=== PATIENT | male | born 1940 | race Two or more races ===

== ENCOUNTER → 2016-06-26 | Outpatient (CLI) | payer OTHER | LOC: BHFA 13:15 | PROVIDERS: ATTEND Internal Medicine Cardiovascular Disease | DX: I11.9 Hypertensive heart disease without heart failure (principal); I27.2 Other secondary pulmonary hypertension ==

== ENCOUNTER 2016-08-16 10:30 | Inpatient (IN) | payer OTHER ==
[2016-08-16] MEDS ORDERED: ONDANSETRON 4 MG/2 ML VIAL IVP ONE (12:37)
[2016-08-16] MEDS ORDERED: KETOROLAC 30 MG/1 ML SDV IVP ONE (14:02)
[2016-08-16 14:12] LABS: GLOMERULAR FILTRATION RATE > 60
--- NOTE | 2016-08-16 15:09 | EDPHY ---
H & P Stated Complaint: continued problems with r SI joint/pain Time Seen by Provider: 08/16/16 12:20 HPI/ROS: CHIEF COMPLAINT: SI joint pain HISTORY OF PRESENT ILLNESS: Patient complains of several days history of right- sided SI joint pain. This is an exacerbation of chronic pain that he has had. He has had this for many years. No new illness or injury. Just sudden worsening of pain over the past 2 days. There is no midline tenderness. The pain does occasionally radiate down the right leg. No saddle anesthesia. No incontinence of bowel or bladder. He has a baseline peripheral neuropathy it is unchanged. No weakness of the lower extremities. 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 He has a history of SI injection by fluoroscopy that was very successful for him. He also has electrodes in place for pain control that are not helping him. No other associated complaints or modifying factors. REVIEW OF SYSTEMS: Ten systems reviewed and are negative unless otherwise noted in the HPI PAST MEDICAL HISTORY: Reviewed. Contributory for chronic pain with pain stimulator in place and previous history of narcotic abuse and alcohol abuse SOCIAL HISTORY: Nonsmoker FAMILY HISTORY: Noncontributory EXAMINATION General Appearance: Alert, no distress Head: normocephalic, atraumatic Eyes: Pupils equal and round, no conjunctival pallor or injection ENT, Mouth: Mucous membranes moist Neck: Normal inspection, supple, non-tender Respiratory: Mild rhonchi. No crackles or diminishment. No distress Cardiovascular: Regular rate and rhythm. No murmur Gastrointestinal: Obese abdomen. Large, easily reducible hernia. No tenderness Back: Mild tenderness in the low back lateral of midline on the right. No bony tenderness. There are well-healed surgical incisions the back. Neurological: A&O, nonfocal. Sensory is intact for baseline. Strength is symmetric in both lower limbs. Patellar reflexes are symmetric. Skin: Warm and dry, no rash. No petechiae or purpura. Extremities: Nontender, no pedal edema Psychiatric: Mood and affect normal DIFFERENTIAL DIAGNOSES: Including but not limited to sacroiliitis, chronic pain, exacerbation of chronic pain, lumbar radiculopathy, acute cord compression, cauda equina MDM: 12:25 p.m. Exacerbation of right sacroiliitis. No neuro deficits. Strength is symmetric. Patellar reflexes symmetric. He has no midline tenderness of the back that is new for him. Does have existing neuropathy. I have ordered a dose of pain medication and will provide Toradol if his creatinine is normal. No evidence of acute cord compression or cauda equina at this time. 1:30 p.m. Creatinine pending. Pain medication administered with minimal improvement. Continue to monitor and re-dose 2:30 p.m. creatinine is within normal limits, thus I will dose with Toradol and 1 more dose of morphine. 3:10 p.m. Persistent pain that is refractory to 2 doses of morphine Toradol. The patient is unable to ambulate out of his bed due to the pain. Complex scenario is here he has pain stimulator, previous narcotic dependency. I am not comfortable discharging patient home as he has been unable to ambulate due to pain. I will proceed with admission to hospital for further care in to discuss the possibility of steroid injection under fluoroscopy when available. 3:30 p.m. I discussed case with Dr. Laws he will admit the patient to observation status for pain control. He is admitted in stable condition neurovascular intact without any evidence of acute cord compression or cauda equina SUPERVISION: Case discussed with Dr. De Paz Source: Patient Exam Limitations: No limitations - Personal History Current Tetanus/Diphtheria Vaccine: Yes Tetanus Vaccine Date: WITHIN 10 Y - Medical/Surgical History Hx Asthma: No Hx Chronic Respiratory Disease: Yes Hx Diabetes: No Hx Cardiac Disease: No Hx Renal Disease: No Hx Cirrhosis: No Hx Alcoholism: No Hx HIV/AIDS: No Hx Splenectomy or Spleen Trauma: No Other PMH: Depression, COPD, chronic pain, HTN, ORTHO SURG BOTH KNEES. hernia surg in 1999, spinal and neck fusion, spinal stimulator, NO MRI - Social History Smoking Status: Former smoker Constitutional: Initial Vital Signs Temperature (C) 97.7 F 08/16/16 10:39 Heart Rate 61 08/16/16 10:39 Respiratory Rate 17 08/16/16 10:39 Blood Pressure 167/93 H 08/16/16 10:39 O2 Sat (%) 93 08/16/16 10:39 O2 Delivery Mode Nasal Cannula O2 (L/minute) 1 Allergies/Adverse Reactions: levofloxacin [From Levaquin] Allergy (Severe, Verified 08/16/16 10:37) amnesia,shaking,swelling,poor sleep Sulfa (Sulfonamide Antibiotics) Allergy (Severe, Verified 08/16/16 10:37) Other-Enter Comments amitriptyline Allergy (Verified 08/16/16 10:37) duloxetine [From Cymbalta] Allergy (Verified 08/16/16 10:37) Home Medications: Medication Instructions Recorded Fluticasone/Salmeter 250/50Mcg 1 puffs IH BID 12/25/13 [Advair 250/50 (*)] Losartan Potassium [Cozaar] 100 mg PO DAILY@12/25/13 Tamsulosin HCl [Flomax 0.4 MG (*)] 0.8 mg PO DAILY@12/25/13 Finasteride [Proscar 5 MG (*)] 5 mg PO DAILY 11/04/14 Levalbuterol Inhaler [Xopenex Hfa 1 puffs IH TID PRN 12/12/14 Inhaler (*)] Baclofen [Baclofen 10 mg (*)] 10 mg PO TID 05/04/15 Disulfiram [Antabuse 250 MG (*)] 250 mg PO MOWEFR@05/04/15 Escitalopram Oxalate [Lexapro] 20 mg PO DAILY 05/04/15 Folic Acid 0.8 mg PO DAILY 05/04/15 [place]-3 Fatty Acids [Fish Oil 1000 1,000 mg PO HS 05/04/15 mg (*)] amLODIPine BESYLATE [Norvasc 5 mg 5 mg PO DAILY #30 tab 05/05/15 (*)] Metoprolol Succinate Xr [Toprol Xl 50 mg PO DAILY 10/21/15 50 mg (*)] Acetaminophen [Tylenol ES 500 mg 500 mg PO BID PRN 02/12/16 (*)] Diphenoxylate HCl/Atrop Sulf 1 - 2 tab PO Q6HRS PRN 02/12/16 [Lomotil Tab (*)] Diazepam [Valium 5 MG (*)] 5 mg PO DAILY PRN 08/16/16 Gabapentin [Neurontin] 1,200 mg PO TID 08/16/16 Medical Decision Making - Data Points Laboratory Results: Laboratory Results 08/16/16 13:05 08/16/16 13:05 Creatinine 1.0 mg/dL mg/dL (0.7-1.3) Estimated GFR > 60 Medications Given: Discontinued Medications Ketorolac Tromethamine (Toradol) 15 mg IVP EDNOW ONE Stop: 08/16/16 14:03 Last Admin: 08/16/16 14:20 Dose: 15 mg Morphine Sulfate (Morphine) 6 mg IVP EDNOW ONE Stop: 08/16/16 12:38 Last Admin: 08/16/16 12:56 Dose: 6 mg Morphine Sulfate (Morphine) 4 mg IVP EDNOW ONE Stop: 08/16/16 14:03 Last Admin: 08/16/16 14:20 Dose: 4 mg Ondansetron HCl (Zofran) 4 mg IVP EDNOW ONE Stop: 08/16/16 12:38 Last Admin: 08/16/16 12:56 Dose: 4 mg Departure - Departure Disposition: [facility] Inpatient Acute Clinical Impression: Intractable pain, Sacroiliitis Condition: Good Referrals: DENILSON BIANCHI [Primary Care Provider] - As per Instructions
--- NOTE | 2016-08-16 16:29 | HOSPPROG ---
Hospitalist Progress Note Assessment/Plan: HISTORY AND PHYSICAL CC:Sacroiliac pain HISTORY: this patient has a long history of back pain issues including most recently chronic bilateral sacroiliac pain. He has had multiple injections to the sacroiliac joints and states that the only 1 that was ever effective was 1 done under imaging guidance. He also has at this time a stimulator in place to treat his SI pain. He says that up until a week ago he is doing quite well without any pain and not using pain medications. A week ago he did some imaging work on his lawn and felt a mild bit of SI joint pain on the right side for a day or 2 without radiculopathy. Then last night as he got a bed he started to feel some more pain but as he woke up this morning the pain was severe in the right SI joint area and he is unable to really stand up again around. He comes into the ER for further evaluation and is wondering if another injection would be helpful. His stimulator has been in place for a year and a half. He has not had problems with that functioning so far. It was placed by Dr. Mcmahon. He has not been having any fevers recently and again has no symptoms to suggest nerve impingement or cauda equina syndrome. He does not use narcotic pain medicines. He had previously been prescribed long and short-acting narcotic pain medicines for ongoing back pain, but he has stopped using these when he was admitted here having used his short-acting medicine excessively and with significant mentation changes related to that. He does also have a history of lumbar spine surgery for spinal stenosis and it seems he is stable from that. ROS: A comprehensive 10 system review revealed no other significant findings PAST MEDICAL HISTORY: Back issues as above History of alcohol and prescribed narcotic abuse, sober COPD, sleep apnea, pulmonary hypertension, chronic respiratory failure with hypoxemia HTN Chronic anxiety disorder Bilateral knee replacements neuropathy in both legs FAMILY MEDICAL HISTORY: he is not aware of any specific concerning or relevant medical issues and relatives SOCIAL HISTORY: he is sober after previous issues with alcohol and prescribe narcotics He formerly was an extremely fit person, very active in competitive martial arts , and weight lifting. In the last 5 years due to back and knee problems he has been unable to be physically active and has gained 50 lb though has been working with some dieting measures and has lost approximately 24 lb in the last few months. It is very uncomfortable for him psychologically to have been unable to continue his previous physical activity levels MEDICATIONS: The patients list has been reconciled by our clinical pharmacist in the EMR. I have reviewed the list and ordered appropriate medicines. PHYSICAL EXAMINATION: Vital Signs: stable without fever Examination: General: alert, oriented, good mentation, relaxed He is lying supine on a ER gurney, and has inability to move significantly from that position due to severe pain with movement ; this pain is in the right SI joint area. 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 -Previous history of abuse of prescribed narcotic analgesics, making avoidance of these medicines the best strategy if at all possible during this admission -Chronic stable COPD, sleep apnea, and hypoxemic respiratory failure PLANS: -admission to observation status here overnight -I will review case with Dr. Peña's team regarding potential evaluation of his stimulator -Consider sacroiliac injection with CT guidance or other imaging guidance I have reviewed the patient's case in detail with JAXSON Boggs, of the ER I have reviewed the patient's past medical records as part of this assessment, including Objective: Vital Signs Temp Pulse Resp BP Pulse Ox 36.2 C 65 16 168/88 H 97 08/16/16 16:16 08/16/16 16:16 08/16/16 16:16 08/16/16 16:16 08/16/16 16:16 08/15/16 08/16/16 08/17/16 06:59 06:59 06:59 Intake Total 1000 Balance 1000 ICD10 Worksheet Patient Problems: Problems Problem Status Onset Intractable pain Acute Sacroiliitis Acute Anxiety Acute Chronic Disease Mgmt/Transitional Care Acute Chronic obstructive pulmonary disease with acute exacerbation Acute Congenital cervical spine stenosis Acute Congestive heart failure Acute Delirium Acute Elevated brain natriuretic peptide (BNP) level Acute Elevated d-dimer Acute Hx of decompressive lumbar laminectomy Acute Hypertensive urgency Acute Hyponatremia Acute Hypoxia Acute Myelopathy of lumbar region Acute Myelopathy of thoracic region Acute Pneumonia Acute Primary osteoarthritis of both knees Acute Renal failure Acute Sciatica Acute Sepsis Acute
[2016-08-16] MEDS ORDERED: DIPHENOXYLATE/ATROPINE LOMOTIL 1 TAB PO PRN (16:33)
[2016-08-16] MEDS ORDERED: LEVALBUTEROL INHALER 200 PUFFS/15 GM MDI IH PRN (16:33)
[2016-08-16] MEDS: GABAPENTIN 400 MG CAP PO SCH ×2 (17:05→21:18)
[2016-08-16] MEDS: DIAZEPAM 5 MG TAB PO PRN (17:06)
[2016-08-16] MEDS: BACLOFEN 10 MG TAB PO SCH ×2 (17:06→21:18)
[2016-08-16] MEDS: FLUTICASONE/SALMETER 250/50MCG DISKUS IH SCH (20:33)
[2016-08-16] MEDS: OMEGA-3 FATTY ACIDS 1,000 MG CAP PO SCH (21:18)
[2016-08-16] MEDS ORDERED: NON-FORMULARY NEW DRUG (Gabapentin [Neurontin] 1,200 MG) PO SCH (22:00)
[2016-08-17] MEDS ORDERED: KETOROLAC 15 MG/1 ML SDV IVP ONE (01:13)
[2016-08-17] MEDS ORDERED: ACETAMINOPHEN 650 MG/20.3 ML UDCUP PO PRN (01:15)
[2016-08-17] MEDS: LIDOCAINE 5% 1 EA PATCH TD SCH (03:14)
[2016-08-17] MEDS: ACETAMINOPHEN 500 MG TAB PO PRN (03:14)
[2016-08-17] MEDS ORDERED: NON-FORMULARY NEW DRUG (Losartan Potassium [Cozaar] 100 MG) PO SCH (08:00)
[2016-08-17] MEDS: amLODIPine BESYLATE 5 MG TAB PO SCH (08:17)
[2016-08-17] MEDS: GABAPENTIN 400 MG CAP PO SCH ×3 (08:17→21:54)
[2016-08-17] MEDS: METOPROLOL SUCCINATE XR 50 MG TAB PO SCH (08:18)
[2016-08-17] MEDS: FINASTERIDE 5 MG TAB PO SCH (08:18)
[2016-08-17] MEDS: LOSARTAN POTASSIUM 50 MG TAB PO SCH (08:18)
[2016-08-17] MEDS: BACLOFEN 10 MG TAB PO SCH ×3 (08:19→21:54)
[2016-08-17] MEDS: DISULFIRAM 250 MG TAB PO SCH (08:19)
[2016-08-17] MEDS: ESCITALOPRAM OXALATE 10 MG TAB PO SCH (08:19)
[2016-08-17] MEDS: FLUTICASONE/SALMETER 250/50MCG DISKUS IH SCH ×2 (08:38→20:45)
[2016-08-17] MEDS ORDERED: FOLIC ACID 0.8 MG PO SCH (09:00)
[2016-08-17] MEDS ORDERED: NON-FORMULARY NEW DRUG (Escitalopram Oxalate [Lexapro] 20 MG) PO SCH (09:00)
[2016-08-17] MEDS ORDERED: NON-FORMULARY NEW DRUG (Folic Acid [Folic Acid] 0.8 MG) PO SCH (09:00)
[2016-08-17] MEDS ORDERED: oxyCODONE IR 5 MG TAB PO PRN (11:08)
[2016-08-17] MEDS ORDERED: LIDOCAINE 1% 300 MG/30 ML SDV ONE (11:31)
[2016-08-17] MEDS ORDERED: IOPAMIDOL (ISOVUE-M 200) 20 ML VIAL ONE (11:33)
[2016-08-17 11:35] LABS: INR 0.96 (0.83-1.16); PROTIME(PATIENT) 12.7 SEC (12.0-15.0)
[2016-08-17] MEDS: TAMSULOSIN HCL 0.4 MG CAP PO SCH (11:46)
[2016-08-17] MEDS: FOLIC ACID 1 MG TAB PO SCH (15:06)
[2016-08-17] MEDS: PATCH REMOVAL 1 EA PATCH TD SCH (16:10)
--- NOTE | 2016-08-17 16:39 | GCON ---
[f rep st] CONSULTATION DATE OF CONSULTATION: 08/17/2016 CHIEF COMPLAINT: Right lower back pain, right SI pain, right lateral thigh pain. HISTORY OF PRESENT ILLNESS: The patient is a 76-year-old male with a long history of back pain. He has a history of thoracic fusion and lumbar laminectomies by Dr. Mcmahon, as well as a [employer] spinal cord stimulator placement in 2014. He felt he was doing well following his stimulator placement, up until about 9 days ago when he had an increase in pain. He noticed the pain onset after he was done edging his lawn. Describes his pain as right lower back pain, right SI pain. Extends into his buttock and down his right lateral thigh. Denies any weakness in his lower extremities. He denies any saddle anesthesia. Presented to the emergency room yesterday for pain management. REVIEW OF SYSTEMS: See HPI. 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 PAST SURGICAL HISTORY: Spinal cord stimulator placement December [address] Mcmahon; T9, T10, T11, T12 laminectomy/fusion [place] [address] Mcmahon ; L3, L4 laminectomy by Dr. Mcmahon; umbilical hernia repair; bilateral knee surgery. FAMILY HISTORY: Mother had lung disease. She of emphysema. Father at age 97. No history of cardiac disease. 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 He has had previous issues with alcohol and prescription narcotics. MEDICATIONS: Patient is taking Neurontin 1200 mg t.i.d., baclofen 30 mg t.i.d. , patient has a lidocaine patch on his right buttock. ALLERGIES: Sulfa, Levaquin, Cymbalta, amitriptyline, OxyContin, oxycodone. PHYSICAL EXAMINATION: MOTOR: 5/5 strength in bilateral lower extremities, including the iliopsoas 5/5 bilateral. Quadriceps 5/5 bilateral. Hamstrings 5/ 5 bilateral. Plantar flexors 5/5 bilateral. Extensor hallucis longus bilateral 5/5. SENSORY: Sensation in bilateral lower extremities is intact to light touch throughout all dermatomal distributions. Patient has negative JCARLOS test bilaterally, negative straight leg raise bilaterally. REFLEXES: Toes are downgoing bilaterally. Johnson sign is negative. Right knee reflex 1+ , left knee reflex 1+. Unable to obtain ankle jerks, absent. Babinski's is negative, and there is no evidence of clonus. CRANIAL NERVES: Cranial nerve II , optic: Pleura. Cranial nerve III: Grossly intact oculomotor. Cranial nerve IV, trochlear: No eye deviation. Cranial nerve V: Sensation intact in V1, V2, and V3 distributions. Facial nerve: There is no facial asymmetry. Cranial nerve VIII, acoustic: Hearing is intact to finger rub bilaterally. Cranial nerve IX, glossopharyngeal: Uvula is midline. Cranial nerve XII, hypoglossal: Tongue protrusion is midline. ORIENTATION: Patient is alert and oriented to person, time, and place. Patient has a normal gait. DIAGNOSTICS: The patient has not had any diagnostic imaging of his spine since admission. ASSESSMENT AND PLAN: The patient is a 76-year-old male who was admitted yesterday for pain management of his lower back. He has a long history of thoracic and lumbar spine surgeries with Dr. Mcmahon, as well as a spinal cord stimulator placement in 2014. Patient describes his pain as being located just above his generator in his right buttock and his sacroiliac region, as well as pain that extends down his right lateral thigh. The patient has received injections with Dr. Vega in the past, which he feels were beneficial. Due to the presence of the spinal cord stimulator, the patient is unable to get an MRI, therefore, we will order a CT myelogram of the lumbar spine as well as some x-rays of the lumbar spine including flexion/extension. Based upon the results of those images, it is likely we will recommend an injection during this hospital stay. NEUROSURGERY ATTENDING NOTE I met with the patient the afternoon of the consultation and agree with the plan as outlined above. We will obtain further imaging and then recommend non- operative interventions depending on his imaging results (injections, medications, etc). He was in agreement with the plan and all questions were answered. /[id number]/MODL MTDD
--- NOTE | 2016-08-17 17:10 | HOSPPROG ---
Hospitalist Progress Note Assessment/Plan: * Acute on chronic back pain (previous laminectomies and spine stimulator) -CT myelogram pending -no MRI due to spine stimulator -pain control - IV morphine * COPD - advair * HTN -norvasc, losartan, metoprolol * Etoh abuse -Antabuse * Obesity BMI 34 with KEISHA * Neuropathy - Neurontin Subjective: Pain is severe. Pain control is inadequate Objective: Vital Signs Temp Pulse Resp BP Pulse Ox 36.3 C 62 12 162/94 H 93 08/17/16 15:36 08/17/16 15:36 08/17/16 15:36 08/17/16 15:36 08/17/16 15:36 Laboratory Results 08/17/16 11:15 08/16/16 08/17/16 08/18/16 05:59 05:59 05:59 Intake Total 200 Balance 200 PT 12.7 SEC (12.0-15.0) 08/17/16 11:15 INR 0.96 (0.83-1.16) 08/17/16 11:15 Lumbar xray - lower canal stenosis - Physical Exam Constitutional: no apparent distress, appears nourished, not in pain Cardiovascular: regular rate and rhythym, no murmur, rub, or gallop Respiratory: no respiratory distress, no rales or rhonchi, clear to auscultation Gastrointestinal: normoactive bowel sounds, soft, non-tender abdomen, no palpable masses Skin: no rashes or abrasions, no fluctuance, no induration Neurologic: AAOx3, sensation intact bilaterally Psychiatric: interacting appropriately, not anxious, not encephalopathic, thought process linear ICD10 Worksheet Patient Problems: Problems Problem Status Onset Intractable pain Acute Sacroiliitis Acute Anxiety Acute Chronic Disease [facility]/Transitional Care Acute Chronic obstructive pulmonary disease with acute exacerbation Acute Congenital cervical spine stenosis Acute Congestive heart failure Acute Delirium Acute Elevated brain natriuretic peptide (BNP) level Acute Elevated d-dimer Acute Hx of decompressive lumbar laminectomy Acute Hypertensive urgency Acute Hyponatremia Acute Hypoxia Acute Myelopathy of lumbar region Acute Myelopathy of thoracic region Acute Pneumonia Acute Primary osteoarthritis of both knees Acute Renal failure Acute Sciatica Acute Sepsis Acute
[2016-08-17] MEDS: OMEGA-3 FATTY ACIDS 1,000 MG CAP PO SCH (20:04)
[2016-08-17] MEDS: DIAZEPAM 5 MG TAB PO PRN (20:04)
[2016-08-18] MEDS: ACETAMINOPHEN 500 MG TAB PO PRN (03:21)
[2016-08-18 05:04] LABS: % IMMATURE GRANULYOCYTES 0.8 % (0.0-1.1); ABSOLUTE IMMATURE GRANULOCYTES 0.04 10^3/uL (0.00-0.10); ADD DIFF? NO; ADD MORPH? NO; ADD SCAN? NO; ATYPICAL LYMPHOCYTE FLAG 10 (0-99); FRAGMENT RBC FLAG 0 (0-99); HEMATOCRIT 43.2 % (40.0-51.0); HEMOGLOBIN 14.8 g/dL (13.7-17.5); LEFT SHIFT FLG 0 (0-99); LIPEMIA HEMOLYSIS FLAG 90 (0-99); MEAN CELL HEMOGLOBIN 31.4 pg (27.9-34.1); MEAN CELL HEMOGLOBIN CONCENTR. 34.3 g/dL (32.4-36.7); MEAN CELL VOLUME 91.5 fL (81.5-99.8); MEAN PLATELET VOLUME 10.9 fL (8.7-11.7); PLATELET CLUMPS FLAG 10 (0-99); PLATELET COUNT 162 10^3/uL (150-400); RED BLOOD CELL COUNT 4.72 10^6/uL (4.40-6.38); RED CELL DISTRIBUTION WIDTH 13.7 % (11.5-15.2)
[2016-08-18 05:31] LABS: ANION GAP 8 mEq/L (8-16); CALCIUM 9.8 mg/dL (8.5-10.4); CARBON DIOXIDE 28 mEq/l (22-31); CHLORIDE 102 mEq/L (97-110); GLOMERULAR FILTRATION RATE > 60; GLUCOSE 92 mg/dL (70-100); POTASSIUM 4.7 mEq/L (3.5-5.2); SODIUM 138 mEq/L (134-144)
[2016-08-18] MEDS: FLUTICASONE/SALMETER 250/50MCG DISKUS IH SCH ×2 (08:55→20:56)
[2016-08-18] MEDS: GABAPENTIN 400 MG CAP PO SCH ×3 (09:12→21:46)
[2016-08-18] MEDS: amLODIPine BESYLATE 5 MG TAB PO SCH (09:12)
[2016-08-18] MEDS: FOLIC ACID 1 MG TAB PO SCH (09:12)
[2016-08-18] MEDS: BACLOFEN 10 MG TAB PO SCH ×3 (09:12→21:47)
[2016-08-18] MEDS: FINASTERIDE 5 MG TAB PO SCH (09:12)
[2016-08-18] MEDS: LIDOCAINE 5% 1 EA PATCH TD SCH (09:13)
[2016-08-18] MEDS: LOSARTAN POTASSIUM 50 MG TAB PO SCH (09:13)
[2016-08-18] MEDS: ESCITALOPRAM OXALATE 10 MG TAB PO SCH (09:13)
[2016-08-18] MEDS: METOPROLOL SUCCINATE XR 50 MG TAB PO SCH (09:21)
[2016-08-18] MEDS: TAMSULOSIN HCL 0.4 MG CAP PO SCH (11:57)
[2016-08-18] MEDS: METHOCARBAMOL 750 MG TAB PO PRN ×2 (11:57→19:49)
[2016-08-18] MEDS: methylPREDNISolone 4 MG TAB PO SCH ×4 (11:57→21:46)
[2016-08-18] MEDS ORDERED: traMADol 50 MG TAB PO PRN (15:44)
[2016-08-18] MEDS ORDERED: HYDROCODONE/APAP 5/325 TAB PO PRN (15:44)
--- NOTE | 2016-08-18 15:46 | HOSPPROG ---
Hospitalist Progress Note Assessment/Plan: * Acute on chronic right SI joint pain -Medrol dose pack started -if no improvement consider IR consult for SI steroid joint injection * Severe lumbar spinal stenosis (previous laminectomies and spine stimulator) -no MRI due to spine stimulator * Previous oxycodone abuse -refuses oxycodone - very motivated to not repeat previous issue -pain severe - IV Morphine here -wants to try norco, also offer tramadol/NSAIDS * COPD - advair * HTN -norvasc, losartan, metoprolol * Etoh abuse -Antabuse * Obesity BMI 34 with KEISHA * Neuropathy - Neurontin Subjective: Pain is severe, doesn't want to go home until he is sure he will not have another pain crisis in the middle of the night Objective: Vital Signs Temp Pulse Resp BP Pulse Ox 36.7 C 59 L 18 115/68 90 L 08/18/16 12:00 08/18/16 12:00 08/18/16 12:00 08/18/16 12:00 08/18/16 12:00 Laboratory Results 08/18/16 04:27 08/18/16 04:27 08/17/16 08/18/16 08/19/16 05:59 05:59 05:59 Intake Total 900 Balance 900 PT 12.7 SEC (12.0-15.0) 08/17/16 11:15 INR 0.96 (0.83-1.16) 08/17/16 11:15 d/w Tone Brock with neurosurgery - their plain is medrol dose pack - if pain continues consider SI joint injection CT lumbar spine - severe spinal stenosis - Physical Exam Constitutional: no apparent distress, appears nourished, not in pain Cardiovascular: regular rate and rhythym, no murmur, rub, or gallop Respiratory: no respiratory distress, no rales or rhonchi, clear to auscultation Gastrointestinal: normoactive bowel sounds, soft, non-tender abdomen, no palpable masses Skin: no rashes or abrasions, no fluctuance, no induration Neurologic: AAOx3, sensation intact bilaterally Psychiatric: interacting appropriately, not anxious, not encephalopathic, thought process linear ICD10 Worksheet Patient Problems: Problems Problem Status Onset Intractable pain Acute Sacroiliitis Acute Anxiety Acute Chronic Disease Mgmt/Transitional Care Acute Chronic obstructive pulmonary disease with acute exacerbation Acute Congenital cervical spine stenosis Acute Congestive heart failure Acute Delirium Acute Elevated brain natriuretic peptide (BNP) level Acute Elevated d-dimer Acute Hx of decompressive lumbar laminectomy Acute Hypertensive urgency Acute Hyponatremia Acute Hypoxia Acute Myelopathy of lumbar region Acute Myelopathy of thoracic region Acute Pneumonia Acute Primary osteoarthritis of both knees Acute Renal failure Acute Sciatica Acute Sepsis Acute
[2016-08-18] MEDS: OMEGA-3 FATTY ACIDS 1,000 MG CAP PO SCH (19:49)
[2016-08-18] MEDS: DIAZEPAM 5 MG TAB PO PRN (21:46)
[2016-08-18] MEDS: IBUPROFEN 600 MG TAB PO PRN (21:46)
[2016-08-18] MEDS: PATCH REMOVAL 1 EA PATCH TD SCH (21:50)
[2016-08-19] MEDS: methylPREDNISolone 4 MG TAB PO SCH ×3 (07:54→18:41)
[2016-08-19] MEDS: ESCITALOPRAM OXALATE 10 MG TAB PO SCH (07:56)
[2016-08-19] MEDS: GABAPENTIN 400 MG CAP PO SCH ×3 (07:56→21:35)
--- NOTE | 2016-08-19 07:58 | NEUSURGPN ---
Assessment/Plan: Assessment: 76 yo M hx of thoracic fusion and lumbar laminectomies, SCS placement (2014), admitted to medicine 08/16/16 right low back pain, right SI pain Plan: -Continue Medrol dose pack -Will order right SI injection with IR today, has been successful for patient in the past -NPO x8 hours prior to procedure -PT/OT as tolerated -Will eval pain level post injection -Follow exam, contact neurosurgery with any changes Subjective: Patient awake and alert, states his pain is worse when moving/standing Objective: aaox3 BLE IP 5/5, TA 5/5, EHL 5/5 negative bilateral Britney +LT Neuro Check Frequency: per routine Urinary Catheter in Place: No Neurosurgery Physical Exam - Vitals, I&O, Labs I and O 08/18/16 08/19/16 08/20/16 05:59 05:59 05:59 Intake Total 900 350 Output Total 400 Balance 900 -50 Intake: Oral (ml) 900 350 Output: Urine (ml) 400 Toilet 400 Other: Output Comment Toilet PT is I, in room, per Pt voids are usual, clear and pale Number of Voids Toilet 3 2 Vital Signs Temp Pulse Resp BP Pulse Ox 36.6 C 74 16 149/84 H 94 08/19/16 00:00 08/19/16 00:00 08/19/16 00:00 08/19/16 00:00 08/19/16 00:00 Laboratory Results 08/18/16 04:27 08/18/16 04:27 ICD10 Worksheet Patient Problems: Problems Problem Status Onset Intractable pain Acute Sacroiliitis Acute Anxiety Acute Chronic Disease Mgmt/Transitional Care Acute Chronic obstructive pulmonary disease with acute exacerbation Acute Congenital cervical spine stenosis Acute Congestive heart failure Acute Delirium Acute Elevated brain natriuretic peptide (BNP) level Acute Elevated d-dimer Acute Hx of decompressive lumbar laminectomy Acute Hypertensive urgency Acute Hyponatremia Acute Hypoxia Acute Myelopathy of lumbar region Acute Myelopathy of thoracic region Acute Pneumonia Acute Primary osteoarthritis of both knees Acute Renal failure Acute Sciatica Acute Sepsis Acute
[2016-08-19] MEDS: DISULFIRAM 250 MG TAB PO SCH (07:59)
[2016-08-19] MEDS: METOPROLOL SUCCINATE XR 50 MG TAB PO SCH (07:59)
[2016-08-19] MEDS: BACLOFEN 10 MG TAB PO SCH ×3 (08:00→21:35)
[2016-08-19] MEDS: LOSARTAN POTASSIUM 50 MG TAB PO SCH (08:00)
[2016-08-19] MEDS: amLODIPine BESYLATE 5 MG TAB PO SCH (08:00)
[2016-08-19] MEDS: IBUPROFEN 600 MG TAB PO PRN ×3 (08:00→20:08)
[2016-08-19] MEDS: FINASTERIDE 5 MG TAB PO SCH (08:00)
[2016-08-19] MEDS: FOLIC ACID 1 MG TAB PO SCH (08:01)
[2016-08-19] MEDS: LIDOCAINE 5% 1 EA PATCH TD SCH (08:01)
[2016-08-19] MEDS: FLUTICASONE/SALMETER 250/50MCG DISKUS IH SCH ×2 (08:27→21:40)
--- NOTE | 2016-08-19 08:37 | SOAPPROG ---
Downtime Inpatient MD Late Entry SOAP Note: Due to computer downtime, I am recreating the following medical record entry as of this date and time based on the information specified below: Information on which this medical record entry is based: (MD: Please list items, such as nursing notes, labs, imaging, etcetera) I saw this patient yesterday 08/18, but no note was saved S: awake, alert, complains of left sided buttock pain that can radiate posteriorly not past the knee. Not associate with weakness O: VSS, Neuro: ULU, sens +LT, follows commands CT myelogram shows multilevel lumbar DJD with moderate to severe stenosis at L2/ 3 and L3/4. A: 76 yo male with previous thoracic fusion and thoracic spinal cord stimulator with known chronic Low back pain. Admitted with acute flare up o of right hip/ buttock/SI joint pain. Patient feels like this is his SI joint pain that has cropped up in the past. P: start Medrol [place], PT/OT as tolerated. If not improved on oral steroids, will trial a right SI joint injection with IR as this has provided relief in past when injected by Dr. Briceño.
[2016-08-19] MEDS ORDERED: DEPO METHYLPREDNISOLONE 40 MG/ML SDV ONE (11:04)
[2016-08-19] MEDS ORDERED: BUPIVACAINE 0.5% 10 ML SDV ONE (11:05)
[2016-08-19] MEDS: METHOCARBAMOL 750 MG TAB PO PRN ×2 (11:27→18:41)
[2016-08-19] MEDS: TAMSULOSIN HCL 0.4 MG CAP PO SCH (13:54)
--- NOTE | 2016-08-19 15:37 | HOSPPROG ---
Hospitalist Progress Note Assessment/Plan: * Acute on chronic right SI joint pain -Medrol dose pack -s/p SI steroid joint injection - monitor for improvement * Severe lumbar spinal stenosis (previous laminectomies and spine stimulator) -no MRI due to spine stimulator * Previous oxycodone abuse -narcotic with extreme caution * COPD - advair * HTN -norvasc, losartan, metoprolol * Etoh abuse -Antabuse * Obesity BMI 34 with KEISHA * Neuropathy - Neurontin Subjective: SI joint injection went well, doesn't know yet what degree of pain relief he has Objective: Vital Signs Temp Pulse Resp BP Pulse Ox 37.2 C 56 L 14 147/84 H 93 08/19/16 11:25 08/19/16 11:25 08/19/16 11:25 08/19/16 11:25 08/19/16 11:25 Laboratory Results 08/18/16 04:27 08/18/16 04:27 08/18/16 08/19/16 08/20/16 05:59 05:59 05:59 Intake Total 900 350 Output Total 400 Balance 900 -50 PT 12.7 SEC (12.0-15.0) 08/17/16 11:15 INR 0.96 (0.83-1.16) 08/17/16 11:15 - Physical Exam Constitutional: no apparent distress, appears nourished, not in pain Cardiovascular: regular rate and rhythym, no murmur, rub, or gallop Respiratory: no respiratory distress, no rales or rhonchi, clear to auscultation Gastrointestinal: normoactive bowel sounds, soft, non-tender abdomen, no palpable masses Skin: no rashes or abrasions, no fluctuance, no induration Neurologic: AAOx3, sensation intact bilaterally Psychiatric: interacting appropriately, not anxious, not encephalopathic, thought process linear ICD10 Worksheet Patient Problems: Problems Problem Status Onset Intractable pain Acute Sacroiliitis Acute Anxiety Acute Chronic Disease Mgmt/Transitional Care Acute Chronic obstructive pulmonary disease with acute exacerbation Acute Congenital cervical spine stenosis Acute Congestive heart failure Acute Delirium Acute Elevated brain natriuretic peptide (BNP) level Acute Elevated d-dimer Acute Hx of decompressive lumbar laminectomy Acute Hypertensive urgency Acute Hyponatremia Acute Hypoxia Acute Myelopathy of lumbar region Acute Myelopathy of thoracic region Acute Pneumonia Acute Primary osteoarthritis of both knees Acute Renal failure Acute Sciatica Acute Sepsis Acute
[2016-08-19] MEDS: ACETAMINOPHEN 500 MG TAB PO PRN (18:41)
[2016-08-19] MEDS: OMEGA-3 FATTY ACIDS 1,000 MG CAP PO SCH (20:08)
[2016-08-19] MEDS: PATCH REMOVAL 1 EA PATCH TD SCH (20:09)
[2016-08-19] MEDS ORDERED: methylPREDNISolone 4 MG TAB PO SCH (21:00)
[2016-08-20] MEDS: ACETAMINOPHEN 500 MG TAB PO PRN (04:58)
[2016-08-20] MEDS: METHOCARBAMOL 750 MG TAB PO PRN (04:58)
[2016-08-20 07:16] VITALS: BP 169/93; TEMP 98
[2016-08-20] MEDS ORDERED: methylPREDNISolone 4 MG TAB PO SCH (07:30)
[2016-08-20] MEDS: GABAPENTIN 400 MG CAP PO SCH (08:19)
[2016-08-20] MEDS: DISULFIRAM 250 MG TAB PO SCH (08:20)
[2016-08-20] MEDS: ESCITALOPRAM OXALATE 10 MG TAB PO SCH (08:20)
[2016-08-20] MEDS: amLODIPine BESYLATE 5 MG TAB PO SCH (08:21)
[2016-08-20] MEDS: FOLIC ACID 1 MG TAB PO SCH (08:21)
[2016-08-20] MEDS: BACLOFEN 10 MG TAB PO SCH (08:21)
[2016-08-20] MEDS: METOPROLOL SUCCINATE XR 50 MG TAB PO SCH (08:21)
[2016-08-20] MEDS: LOSARTAN POTASSIUM 50 MG TAB PO SCH (08:21)
[2016-08-20] MEDS: FINASTERIDE 5 MG TAB PO SCH (08:22)
[2016-08-20] MEDS: LIDOCAINE 5% 1 EA PATCH TD SCH (08:22)
--- NOTE | 2016-08-20 09:11 | NEUSURGPN ---
Assessment/Plan: Assessment: 76 yo M hx of thoracic fusion and lumbar laminectomies, SCS placement (2014), admitted to medicine 08/16/16 right low back pain, right SI pain Plan: -Continue Medrol dose pack -SI injection successful- able to ambulate better without pain, still has some pain but much improved -Dispo- Plan for home today with follow up with Dr. Ceja in 2-3 weeks -PT/OT as tolerated -Follow exam, contact neurosurgery with any changes Subjective: Patient up walking around room. States SI joint injection helped a lot but still has some pain. Ready to go home later today. Objective: aaox3 BLE IP 06/26, TA 06/26, EHL 06/26 gait- normal TTP over SI joint sulcus but minimally +LT - Physician Discussed Patient with : [facility] Physical Exam - Vitals, I&O, Labs I and O 08/19/16 08/20/16 08/21/16 05:59 05:59 05:59 Intake Total 350 450 Output Total 400 Balance -50 450 Intake: Oral (ml) 350 450 Output: Urine (ml) 400 Toilet 400 Other: Intake Quantity Yes Sufficient Number of Voids Toilet 2 1 Vital Signs Temp Pulse Resp BP Pulse Ox 36.7 C 56 L 18 169/93 H 90 L 08/20/16 07:10 08/20/16 08:21 08/20/16 07:10 08/20/16 08:21 08/20/16 07:10 Laboratory Results 08/18/16 04:27 08/18/16 04:27 ICD10 Worksheet Patient Problems: Problems Problem Status Onset Intractable pain Acute Sacroiliitis Acute Anxiety Acute Chronic Disease Mgmt/Transitional Care Acute Chronic obstructive pulmonary disease with acute exacerbation Acute Congenital cervical spine stenosis Acute Congestive heart failure Acute Delirium Acute Elevated brain natriuretic peptide (BNP) level Acute Elevated d-dimer Acute Hx of decompressive lumbar laminectomy Acute Hypertensive urgency Acute Hyponatremia Acute Hypoxia Acute Myelopathy of lumbar region Acute Myelopathy of thoracic region Acute Pneumonia Acute Primary osteoarthritis of both knees Acute Renal failure Acute Sciatica Acute Sepsis Acute
[2016-08-20] MEDS: FLUTICASONE/SALMETER 250/50MCG DISKUS IH SCH (09:17)
[2016-08-20 09:19] VITALS: PULSE 61; RESP 12; O2SAT 94
--- NOTE | 2016-08-20 18:24 | GDS ---
[f rep st] DISCHARGE SUMMARY DISCHARGE DIAGNOSES: 1. Acute on chronic right sacroiliac joint pain. 2. Severe lumbar spinal stenosis. 3. Spinal stimulator. 4. Previous oxycodone abuse. 5. Chronic obstructive pulmonary disease. 6. Hypertension. 7. Alcohol abuse. 8. Obesity, BMI 34. 9. Obstructive sleep apnea. 10. Neuropathy. HISTORY: The patient is a 76-year-old male with a history of severe SI joint pain. He has gotten a spinal stimulator in the past for this indication. He has also previously had successful steroid i njections. He was admitted to the hospital and Neurosurgery consulted. They did a CT myelogram as he is unable to do an MRI due to the spinal stimulator. This showed severe lumbar spinal stenosis, and he has had previous laminectomies. It was decided to proceed with an SI joint steroid injection in Interventional Radiology. Patient had a great result with this, and the next day was nearly maeve n-free. Neurosurgery wishes him to discharge on a Medrol Dosepak. He did use narcotics while he wa s an inpatient for pain control, but given his previous history of oxycodone abuse, does not desire any narcotics upon hospital discharge. DISCHARGE MEDICATIONS: Please see computerized record for full detailed list. New medications: Medrol Dosepak as directed. ADDITIONAL DISCHARGE INSTRUCTIONS: 1. Follow up with Dr. Mcmahon in 2-3 weeks. 2. Follow up with primary care. Greater than 30 minutes' time was spent arranging this discharge. Patient was seen and examined by me on the day of discharge. /[id number]/MODL
[2016-08-21] MEDS ORDERED: methylPREDNISolone 4 MG TAB PO SCH (07:30)
[2016-08-22] MEDS ORDERED: methylPREDNISolone 4 MG TAB PO SCH (07:30)
[2016-08-23] MEDS ORDERED: methylPREDNISolone 4 MG TAB PO SCH (07:30)
== END 2016-08-20 11:11 | disposition home or self-care (01) | DRG 552 ==
LOC: F3N 16:14 → OBSVTOIN 08-17 11:10
PROVIDERS: ADMIT Internal Medicine; ATTEND Internal Medicine
PROC: B02B1ZZ Computerized Tomography (CT Scan) of Spinal Cord using Low Osmolar Contrast (ICD-10-PCS; principal; 2016-08-17)
PROC: 3E0U3BZ Introduction of Anesthetic Agent into Joints, Percutaneous Approach (ICD-10-PCS; 2016-08-19)
DX: M53.3 Sacrococcygeal disorders, not elsewhere classified (principal); M48.06 Spinal stenosis, lumbar region; F11.10 Opioid abuse, uncomplicated; J44.9 Chronic obstructive pulmonary disease, unspecified; I10 Essential (primary) hypertension; F10.10 Alcohol abuse, uncomplicated; E66.9 Obesity, unspecified; Z68.34 Body mass index [BMI] 34.0-34.9, adult; G47.33 Obstructive sleep apnea (adult) (pediatric); G62.9 Polyneuropathy, unspecified; Z96.89 Presence of other specified functional implants
CPT/HCPCS: 96374; 97165-GO; G0378; G8987-GO-CI; G8988-GO-CI; G8989-GO-CI; J1030; J1885; J2405; Q9966

== ENCOUNTER → 2017-01-20 | Outpatient (CLI) | payer OTHER | LOC: BHFA 14:00 | PROVIDERS: ATTEND Internal Medicine Cardiovascular Disease | DX: I10 Essential (primary) hypertension (principal) ==

== ENCOUNTER 2018-05-02 11:37 | Day surgery (SDC) | payer OTHER ==
[2018-05-02] MEDS ORDERED: LR 1,000 ML IV ONE (12:30)
--- NOTE | 2018-05-02 12:48 | PDANEPAE ---
ANE History of Present Illness h/o polyps for colonoscopy ANE Past Medical History - Cardiovascular History Hx Hypertension: Yes Hx Arrhythmias: No Hx Chest Pain: No Hx Coronary Artery / Peripheral Vascular Disease: No Hx CHF / Valvular Disease: No Hx Palpitations: No Cardiovascular History Comment: no cp - Pulmonary History Hx COPD: Yes Hx Asthma/Reactive Airway Disease: Yes Hx Recent Upper Respiratory Infection: Yes Hx Oxygen in Use at Home: Yes O2 in Use at Home (L/minute): O2 2L NOC W/CPAP Hx Sleep Apnea: Yes Sleep Apnea Screening Result - Last Documented: Positive Pulmonary History Comment: copd/ chronic bronchitis - JUST COMPLETED AMOXICILLIN FOR RECENT BRONCHITIS. denies sob w stairs. pneumonia 2011. robel, uses cpap. ASTHMA - Neurologic History Hx Cerebrovascular Accident: No Hx Seizures: No Hx Dementia: No Neurologic History Comment: neuropathy LEs. spinal stenosis - Endocrine History Hx Diabetes: No - Renal History Hx Renal Disorders: Yes Renal History Comment: BPH - Liver History Hx Hepatic Disorders: No - Neurological & Psychiatric Hx Hx Neurological and Psychiatric Disorders: Yes Neurological / Psychiatric History Comment: depression - Cancer History Hx Cancer: No - Congenital Disorder History Hx Congenital Disorders: No - GI History Hx Gastrointestinal Disorders: No - Other Health History Other Health History: NEG - Chronic Pain History Chronic Pain: Yes (knees & BACK/SHOULDERS) - Surgical History Prior Surgeries: IMPLANTED SPINAL STIMULATOR. R CERVICAL FUSION 2014. leonie knee repl 2012. fusion t9-12, t11-12 unilateral fusion, l3-5 decompression/ . umb hernia rep ANE Review of Systems Review of Systems: - Exercise capacity METS (RN): 4 METS ANE Patient History - Allergies Allergies/Adverse Reactions: levofloxacin [From Levaquin] Allergy (Severe, Verified 08/16/16 10:37) amnesia,shaking,swelling,poor sleep Sulfa (Sulfonamide Antibiotics) Allergy (Severe, Verified 08/16/16 10:37) Other-Enter Comments amitriptyline Allergy (Verified 08/16/16 10:37) duloxetine [From Cymbalta] Allergy (Verified 08/16/16 10:37) - Home Medications Home Medications: Fluticasone/Salmeter 250/50Mcg [Advair 250/50 (*)] 1 puffs IH BID 12/25/13 [ Last Taken 04/30/18] Losartan Potassium [Cozaar] 100 mg PO DAILY@08 12/25/13 [Last Taken 05/02/18] Tamsulosin HCl [Flomax 0.4 MG (*)] 0.8 mg PO DAILY@12 12/25/13 [Last Taken 04/30] Finasteride [Proscar 5 MG (*)] 5 mg PO DAILY 11/04/14 [Last Taken 04/30/18] Baclofen [Baclofen 10 mg (*)] 10 mg PO TID 05/04/15 [Last Taken 05/02/18] Disulfiram [Antabuse 250 MG (*)] 250 mg PO MOWEFR@08 05/04/15 [Last Taken ] Escitalopram Oxalate [Lexapro] 20 mg PO DAILY 05/04/15 [Last Taken 04/30/18] Folic Acid 0.8 mg PO DAILY 05/04/15 [Last Taken 04/30/18] Odum-3 Fatty Acids [Fish Oil 1000 mg (*)] 1,000 mg PO HS 05/04/15 [Last Taken 04/30/18] Metoprolol Succinate Xr [Toprol Xl 50 mg (*)] 50 mg PO DAILY 10/21/15 [Last Taken 05/02/18] Acetaminophen [Tylenol ES 500 mg (*)] 500 mg PO BID PRN 02/12/16 [Last Taken ] Diazepam [Valium 5 MG (*)] 5 mg PO DAILY PRN 08/16/16 [Last Taken 04/29/18] Gabapentin [Neurontin] 1,200 mg PO TID 08/16/16 [Last Taken 05/02/18] Naproxen 04/20/18 [Last Taken 04/30/18] Probiotic 04/20/18 [Last Taken 04/30/18] Singulair 04/20/18 [Last Taken Unknown] Torsemide 04/20/18 [Last Taken 05/02/18] Vit B12/Intrinsic Fact/Folate 04/20/18 [Last Taken 04/30/18] - Smoking Hx Smoking Status: Former smoker - Family Anes Hx Family Hx Anesthesia Complications: father- hallucinations, was elderly when he had surg ANE Labs/Vital Signs - Vital Signs Height: 170.18 cm Weight: 99.79 kg ANE Physical Exam - Airway Neck exam: FROM Mallampati Score: Class 2 Mouth exam: normal dental/mouth exam - Pulmonary Pulmonary: no respiratory distress - Cardiovascular Cardiovascular: regular rate and rhythym - ASA Status ASA Status: III ANE Anesthesia Plan Anesthesia Plan: GA with mask
[2018-05-02] MEDS ORDERED: INDOMETHACIN 50 MG SUPP PR PRN (13:07)
--- NOTE | 2018-05-02 13:07 | PDGENHP ---
History & Physical Chief Complaint: phx polyps History of Present Illness: 77 year old male presents for surveillance of a complex ascending colon polyp Pertinent Past, Social, Family History: PMHx: polyps, COPD. PSugHx;spinal stim Relevant Physical Exam: HEENT: anicteric. CV: RRR+s1s2. Lungs: CTAB. Abd: soft, nt, + bs Cardiorespiratory Assessment: ASA 3
[2018-05-02] MEDS ORDERED: PROPOFOL 200 MG/20 ML VIAL ONE ×3 (13:08→13:09)
[2018-05-02] MEDS ORDERED: NS 500 ML IV SCH (13:15)
[2018-05-02] MEDS ORDERED: HYDROmorphONE/DILAUDID 2 MG/ML INJ IVP PRN (13:20)
[2018-05-02] MEDS ORDERED: oxyCODONE IR 5 MG TAB PO PRN (13:20)
[2018-05-02] MEDS ORDERED: NALOXONE HCL 0.4 MG/ML INJ IVP PRN (13:20)
[2018-05-02] MEDS ORDERED: fentaNYL 100 MCG/2 ML INJ IVP PRN (13:20)
[2018-05-02] MEDS ORDERED: ONDANSETRON 4 MG/2 ML VIAL IVP PRN (13:20)
[2018-05-02] MEDS ORDERED: LR 500 ML IV PRN (13:20)
[2018-05-02] MEDS ORDERED: ACETAMINOPHEN 500 MG TAB PO PRN (13:20)
[2018-05-02] MEDS ORDERED: HYDROCODONE/APAP 5/325 TAB PO PRN (13:20)
--- NOTE | 2018-05-02 13:20 | POSTANESTH ---
Post Anesthetic Evaluation Cardiovascular Status: Normal, Stable Respiratory Status: Normal, Stable Level of Consciousness/Mental Status: Can Participate in Eval, Mildly Sleepy, Arousable Pain Control: Adequate, Prn Tx Ordered Nausea/Vomiting Control: Adequate, Prn Tx Ordered Complications Possibly Related to Anesthesia: None Noted
--- NOTE | 2018-05-02 13:48 | GIREPORT ---
[facility] - Endoscopy Department Patient Name: Akira Parnell Procedure Date: 05/02/2018 1:11 PM Patient Type: Outpatient Attending MD/ ER Physician: Osmel Mauro MD Procedure: Colonoscopy Indications: High risk colon cancer surveillance: Personal history of colonic polyps Patient Profile: 77 year old male with a history of complex polyps presents for surveill ance colonoscopy. Providers: Osmel Mauro MD Medicines: Monitored Anesthesia Care Complications: No immediate complications. Estimated blood loss: Minimal. Description of Procedure: After obtaining informed consent, the scope was passed under direct vis ion. Throughout the procedure, the patient's blood pressure, pulse, and oxyg en saturations were monitored continuously.The colonoscopy was performed without difficulty. The patient tolerated the procedure well. The quali ty of the bowel preparation was good. The ileocecal valve, appendiceal orific e, and rectum were photographed. The Colonoscope was introduced through th e anus and advanced to the cecum, identified by appendiceal orifice and ileocecal valve. Findings: The perianal and digital rectal examinations were normal. Pertinent negatives include no palpable rectal lesions. Multiple small and large-mouthed diverticula were found in the sigmoid colon, descending colon, transverse colon and ascending colon. A 5 mm polyp was found in the ascending colon. The polyp was sessile. T he polyp was removed with a cold snare. Resection and retrieval were compl ete. Estimated Blood Loss: Estimated blood loss was minimal. Post Op Diagnosis: - Diverticulosis in the sigmoid colon, in the descending colon and in t he transverse colon. - One 5 mm polyp in the ascending colon, removed with a cold snare. Res ected and retrieved. Recommendation: - Discharge patient to home (with escort). - The signs and symptoms of potential delayed complications were discus sed with the patient. - Patient has a contact number available for emergencies. - Return to normal activities tomorrow. - Resume previous diet. - Continue present medications. - Repeat colonoscopy in 2 years for surveillance. - Thank you for allowing me to participate in the care of your patient. Attending Participation: I personally performed the entire procedure. Osmel Mauro MD Osmel Mauro MD 05/02/2018 1:48:49 PM This report has been signed electronicallyOsmel Mauro MD Number of Addenda: 0 Note Initiated On: 05/02/2018 1:11 PM Total Procedure Duration Time 0 hours 20 minutes 40 seconds [email or web address]
[2018-05-02 15:57] VITALS: BP 156/85
== END 2018-05-02 16:10 | disposition home or self-care (01) ==
LOC: FSGY 11:37
PROVIDERS: ATTEND Internal Medicine Gastroenterology
PROC: 0DBK8ZX Excision of Ascending Colon, Via Natural or Artificial Opening Endoscopic, Diagnostic (ICD-10-PCS; principal; 2018-05-02 13:15)
DX: Z86.010 Personal history of colon polyps (principal); K57.30 Diverticulosis of large intestine without perforation or abscess without bleeding; D12.2 Benign neoplasm of ascending colon; J44.9 Chronic obstructive pulmonary disease, unspecified; Z98.1 Arthrodesis status; Z96.653 Presence of artificial knee joint, bilateral
CPT/HCPCS: J2704